=== PATIENT | female | born 1955 | race African-American/Black ===

== ENCOUNTER 2024-07-30 05:51 | Emergency (ER) | payer BC, MEDICAID ==
[~2024-07-30] VITALS: Ht 162.6 cm; Wt 64.7 kg
[~2024-07-30 05:51] MED LIST: EXFORGE; METOPROLOL
[2024-07-30 06:02] VITALS: O2SAT 98
[2024-07-30 07:02] LABS: CHLORIDE 102 mEq/L (98-107); SODIUM 141 mEq/L (136-145)
[2024-07-30 07:03] LABS: CALCIUM 10.3 mg/dL (8.7-10.4); CARBON DIOXIDE 31 mEq/L (21-32)
[2024-07-30] MEDS: LOSARTAN 100 MG TABLET PO ONE (07:05)
[2024-07-30] MEDS: AMLODIPINE 10MG TABLET PO ONE (07:05)
[2024-07-30] MEDS: PANTOPRAZOLE 40MG DR TABLET PO ONE (07:05)
[2024-07-30] MEDS: ATENOLOL 25MG TABLET PO ONE (07:05)
[2024-07-30] MEDS: RIVAROXABAN 2.5 MG TABLET PO NR (07:06)
[2024-07-30 07:08] LABS: BASOPHILS % 0.4 % (0.0-2.0); CREATININE 0.9 mg/dL (0.6-1.0); EOSINOPHILS % 0.9 % (0.0-5.0); GLUCOSE 137 mg/dL (70-105); HEMATOCRIT. 42.5 % (36.0-48.0); HEMOGLOBIN. 14.1 g/dL (12.0-16.0); LYMPHOCYTES % 38.5 % (20.0-50.0); MEAN CORPUSCULAR HEMOGLOBIN 31.1 pg (28.0-32.0); MEAN CORPUSCULAR HGB CONC 33.3 g/dL (31.0-37.0); MEAN CORPUSCULAR VOLUME 93.3 fL (81.0-99.0); MONOCYTES % 9.3 % (2.0-8.0); NEUTROPHILS % 50.9 % (40.0-76.0); PLATELET 238 x1000/uL (130-400); RED BLOOD CELL COUNT 4.55 mill/uL (4.2-5.4); RED CELL DISTRIBUTION WIDTH 13.3 % (11.6-14.6); UREA NITROGEN BLOOD 11 mg/dL (9-23); WHITE BLOOD COUNT 5.5 x1000/uL (4.5-11.0)
[2024-07-30 07:10] LABS: ALANINE AMINOTRANSFERASE 23 IU/L (10-49); ALBUMIN 4.7 g/dL (3.2-4.8); ASPARTATE AMINOTRANSFERASE 32 IU/L (<34); BILIRUBIN TOTAL 0.9 mg/dL (0.1-1.0); PROTEIN TOTAL 8.1 g/dL (6.0-8.3)
[2024-07-30 07:19] LABS: PARTIAL THROMBOPLASTIN TIME 26.5 sec (23.4-31.0); PROTHROMBIN TIME 10.7 sec (9.6-11.0)
[2024-07-30 07:56] LABS: TROPONIN I HIGH SENSITIVITY 35 ng/L (3.0-34)
[2024-07-30] MEDS: ASPIRIN 81MG TABLET PO ONE (07:57)
[2024-07-30 11:30] VITALS: BP 143/86; PULSE 65; RESP 15; TEMP 36.39180; O2SAT 100
[2024-07-30] MEDS ORDERED: IOHEXOL-350 100 ML BOTTLE ONE (11:34)
[2024-07-30] MEDS ORDERED: ATORVASTATIN CALCIUM 40MG TABLET PO ONE (21:00)
== END 2024-07-30 11:32 | disposition home or self-care (01) ==
LOC: ER 05:51
DX: I21.4 Non-ST elevation (NSTEMI) myocardial infarction (principal); I25.10 Atherosclerotic heart disease of native coronary artery without angina pectoris; I11.0 Hypertensive heart disease with heart failure; E78.00 Pure hypercholesterolemia, unspecified; E11.9 Type 2 diabetes mellitus without complications; Z79.899 Other long term (current) drug therapy
CPT/HCPCS: 80053; 83880; 85025; 85610; 85730; 84484; 36415; 71045; 71275; 93005; 99291; Q9967; Z7610 ×3; A4606